=== PATIENT | female | born 1970 | race Caucasian/White ===

== ENCOUNTER 2016-09-19 23:09 | Emergency (ER) | payer MEDICAID ==
[2016-09-20 01:00] VITALS: BP 126/67
== END 2016-09-20 01:00 | disposition home or self-care (01) ==
LOC: ED 23:09
DX: F41.0 Panic disorder [episodic paroxysmal anxiety] (principal); F32.9 Major depressive disorder, single episode, unspecified; R07.89 Other chest pain; R51 Headache

== ENCOUNTER 2016-12-09 11:35 | Emergency (ER) | payer MEDICAID ==
[~2016-12-09] VITALS: Ht 157.5 cm; Wt 99.8 kg
[2016-12-09 15:00] VITALS: BP 97/63
== END 2016-12-09 15:00 | disposition home or self-care (01) ==
LOC: ED 11:35
DX: S39.012A Strain of muscle, fascia and tendon of lower back, initial encounter (principal); X58.XXXA Exposure to other specified factors, initial encounter; Y93.89 Activity, other specified; Y92.89 Other specified places as the place of occurrence of the external cause; Y99.8 Other external cause status
CPT/HCPCS: J1100; J1885

== ENCOUNTER 2017-10-16 10:58 | Emergency (ER) | payer MEDICAID ==
[~2017-10-16] VITALS: Ht 154.9 cm; Wt 98.9 kg
[2017-10-16 11:30] VITALS: BP 143/109; Ht 154.9 cm; Wt 98.9 kg
== END 2017-10-16 12:45 | disposition home or self-care (01) ==
LOC: ED 10:58
DX: H60.92 Unspecified otitis externa, left ear (principal)